=== PATIENT | male | born 1975 | race Caucasian/White ===

== ENCOUNTER → 2021-06-27 | Outpatient (CLI) | payer BC, OTHER ==
[2021-06-28 08:14] LABS: RHEUMATOID ARTHRITIS FACTOR <10.0 IU/mL (0.0-13.9)
[2021-06-28 10:14] LABS: HCV AB <0.1 (0.0-0.9)
[2021-06-28 12:14] LABS: HBSAG SCREEN Negative (Negative); HEP B CORE AB, TOT Negative (Negative)
== END ==
LOC: LAB 13:15
PROVIDERS: Nurse Practitioner Family
DX: Z11.59 Encounter for screening for other viral diseases (principal); D89.9 Disorder involving the immune mechanism, unspecified; M25.50 Pain in unspecified joint; R76.8 Other specified abnormal immunological findings in serum; Z79.899 Other long term (current) drug therapy; Z87.39 Personal history of other diseases of the musculoskeletal system and connective tissue
CPT/HCPCS: 81374; 83520; 84439; 84443; 85652; 86140; 86200; 86431; 86704; 86803; 87340

== ENCOUNTER → 2021-07-03 | Outpatient (CLI) | payer BC, OTHER | LOC: KOH-I 15:46 | DX: M54.50 Low back pain, unspecified (principal); Z87.39 Personal history of other diseases of the musculoskeletal system and connective tissue; R93.6 Abnormal findings on diagnostic imaging of limbs | CPT/HCPCS: 73130 ==

== ENCOUNTER → 2021-07-05 | Outpatient (CLI) | payer BC, OTHER | LOC: KOH-I 15:43 | DX: M54.50 Low back pain, unspecified (principal); M48.061 Spinal stenosis, lumbar region without neurogenic claudication; Z87.39 Personal history of other diseases of the musculoskeletal system and connective tissue | CPT/HCPCS: 72202 ==